=== PATIENT | male | born 1985 | race Caucasian/White ===

== ENCOUNTER 2016-10-19 00:47 | Emergency (ER) | payer OTHER ==
[~2016-10-19] VITALS: Ht 180.3 cm; Wt 80.3 kg
[~2016-10-19 00:47] MED LIST: CYCLOBENZAPRINE10 MG PO; FLONASE0.05 MG/AC NS; KEFLEX500 MG PO; KENALOG 0.1%80 GM T; LOMOTIL 0.025 M1 TA1 PO; MOTRIN800 MG PO; Motrin,Rufen800 MG PO; ROBITUSSIN CF240 ML PO; VIBRAMYCIN100 MG PO; VICODIN 5/500 505 MG PO; ZOFRAN ODT4 MG SL
[2016-10-19 00:56] VITALS: BP 123/73
[2016-10-19] MEDS ORDERED: PREDNISONE10 MG PO (01:02)
== END 2016-10-19 01:18 | disposition home or self-care (01) ==
LOC: ED 00:47
DX: L23.7 Allergic contact dermatitis due to plants, except food (principal); Z91.030 Bee allergy status

== ENCOUNTER 2018-03-22 17:59 | Emergency (ER) | payer SELFPAY ==
[~2018-03-22] VITALS: Ht 180.3 cm; Wt 74.8 kg
[~2018-03-22 17:59] MED LIST changes: +PREDNISONE10 MG PO
[2018-03-22 18:18] LABS: BASO # 0.1 10*3/uL (0.0-0.1); BASO % 0.6 % (0.0-1.0); EOS # 0.1 10*3/uL (0.0-0.4); EOS % 0.9 % (1.0-4.0); HEMATOCRIT 42.5 % (42.0-52.0); HEMOGLOBIN 14.3 g/dl (14.0-18.0); LYMPH # 2.9 10*3/uL (1.3-4.4); LYMPH % 21.5 % (27.0-41.0); MEAN CELL VOLUME 93.4 fl (80.0-94.0); MEAN CORPUSCULAR HGB 31.4 pg (27.0-31.0); MEAN CORPUSCULAR HGB CONC 33.6 g/dl (33.0-37.0); MEAN PLATELET VOLUME 9.6 fl (9.6-12.3); MONO # 0.5 10*3/uL (0.1-1.0); MONO % 3.5 % (3.0-9.0); NEUT # 9.8 10*3/uL (2.3-7.9); NEUT % 73.1 % (47.0-73.0); PLATELET COUNT AUTOMATED 198 10*3/uL (130-400); RED BLOOD COUNT 4.55 10*6/uL (4.50-5.90); RED CELL DISTRI WIDTH 12.9 % (0-14.5); WHITE BLOOD COUNT 13.5 10*3/uL (4.8-10.8)
[2018-03-22 18:28] LABS: BILIRUBIN NEGATIVE (NEGATIVE); BLOOD NEGATIVE (NEGATIVE); CLARITY SL CLOUDY (CLEAR); COLOR YELLOW (YELLOW); GLUCOSE NEGATIVE (NEGATIVE); KETONE NEGATIVE (NEGATIVE); LEUKO ESTERASE NEGATIVE (NEGATIVE); NITRITE NEGATIVE (NEGATIVE); UROBILINOGEN 0.2 E.U./dl (0.2-1.0)
[2018-03-22 18:32] LABS: ALBUMIN 3.7 gm/dl (3.1-4.5); ALKALINE PHOSPHATASE 72 U/L (45-117); BUN 14 mg/dl (7-24); CHLORIDE 106 mmol/L (98-107); CREATININE 0.95 mg/dL (0.70-1.30); POTASSIUM 4.1 mmol/L (3.5-5.1); SGOT/AST 11 IU/L (3-35); SGPT/ALT 23 U/L (12-78); SODIUM 141 mmol/L (136-145); TOTAL PROTEIN 7.4 gm/dL (6.4-8.2)
[2018-03-22 18:33] LABS: BACTERIA 1+; MUCOUS TRACE
[2018-03-22 18:34] LABS: EPITHELIAL CELLS 0-2
[2018-03-22 19:46] VITALS: BP 101/50
[2018-03-22] MEDS ORDERED: SEPTDS PO (22:43)
[2018-03-22] MEDS ORDERED: NAPROSYN500 MG PO (22:43)
== END 2018-03-22 22:48 | disposition home or self-care (01) ==
LOC: ED 17:59
PROVIDERS: Nurse Practitioner Family
DX: R30.0 Dysuria (principal); M54.5 Low back pain; Z87.440 Personal history of urinary (tract) infections; Z91.030 Bee allergy status

== ENCOUNTER 2018-04-29 18:03 | Emergency (ER) | payer OTHER ==
[~2018-04-29] VITALS: Ht 175.2 cm; Wt 79.4 kg
[~2018-04-29 18:03] MED LIST changes: +NAPROSYN500 MG PO; +SEPTDS PO
[2018-04-29 18:06] VITALS: BP 117/83
[2018-04-29] MEDS ORDERED: ZOFRAN4 MG PO (19:31)
== END 2018-04-29 20:25 | disposition home or self-care (01) ==
LOC: ED 18:03
DX: A08.4 Viral intestinal infection, unspecified (principal); Z91.030 Bee allergy status; Z79.2 Long term (current) use of antibiotics; Z79.899 Other long term (current) drug therapy

== ENCOUNTER 2018-05-15 19:08 | Emergency (ER) | payer OTHER ==
[~2018-05-15] VITALS: Ht 177.8 cm; Wt 74.8 kg
[2018-05-15 19:08] VITALS: BP 129/72
[~2018-05-15 19:08] MED LIST changes: +ZOFRAN4 MG PO
[2018-05-15] MEDS ORDERED: CYCLOBENZAPRINE5 M3 PO (21:09)
[2018-05-15] MEDS ORDERED: MEDROL DOSEPAK4 MG PO (21:09)
== END 2018-05-15 21:13 | disposition home or self-care (01) ==
LOC: ED 19:08
DX: S39.012A Strain of muscle, fascia and tendon of lower back, initial encounter (principal); Z91.030 Bee allergy status; X58.XXXA Exposure to other specified factors, initial encounter; Y93.89 Activity, other specified; Y92.89 Other specified places as the place of occurrence of the external cause; Y99.9 Unspecified external cause status

== ENCOUNTER → 2018-06-24 | Outpatient (CLI) | payer OTHER ==
[~2018-06-24] MED LIST changes: +CYCLOBENZAPRINE5 M3 PO; +MEDROL DOSEPAK4 MG PO
[2018-06-24 12:10] LABS: HEMATOCRIT 42.1 % (42.0-52.0); HEMOGLOBIN 14.9 g/dl (14.0-18.0); MEAN CELL VOLUME 91.7 fl (80.0-94.0); MEAN CORPUSCULAR HGB 32.5 pg (27.0-31.0); MEAN CORPUSCULAR HGB CONC 35.4 g/dl (33.0-37.0); MEAN PLATELET VOLUME 10.2 fl (9.6-12.3); PLATELET COUNT AUTOMATED 204 10*3/uL (130-400); RED BLOOD COUNT 4.59 10*6/uL (4.50-5.90)
[2018-06-24 13:01] LABS: ATYPICAL LYMPHS 5 % (0-0); BASOPHILS 1 % (0-1); PLATELET SUFFICIENCY NORMAL (NORMAL); TOTAL CELLS COUNTED 100 #CELLS
== END | disposition home or self-care (01) ==
LOC: LAB 11:40
PROVIDERS: Nurse Practitioner
DX: D72.828 Other elevated white blood cell count (principal)

== ENCOUNTER 2018-11-12 10:30 | Emergency (ER) | payer OTHER ==
[~2018-11-12] VITALS: Wt 74.8 kg
--- NOTE | ~2018-11-12 | EKG ---
[place], [place] ELECTROCARDIOGRAM REPORT NAME: CHARLIE CARVER UNIT #: [id number] ROOM: DOCTOR: EPIPHWYATT DRAFT REPORT BIRTHDATE: [birth year] [facility] Test Date: 2018-11-12 Test Time: 10:59:16 Pat Name: CHARLIE CARVER Department: Room: Gender: Academic Support Coordinator: Makenna Agrawal : 1985 Requested By: KENYA HARKINS Order Number: [id number] Reading MD: Marco Webber Measurements Intervals [place] Rate: 72 P: 54 WI: 166 QRS: 75 QRSD: 100 T: 32 QT: 396 QTc: 434 Interpretive Statements Sinus rhythm Probable left ventricular hypertrophy No previous ECG available for comparison Electronically Signed On 11-12-2018 9:46:48 PDT by Marco Webber CM:EKGRPT:ELECTROCARDIOGRAM REPORT [id number] KENYA COLEMAN DRAFT REPORT KENYA MOREJON
[2018-11-12 10:32] VITALS: BP 123/90
[2018-11-12 11:11] LABS: BASO # 0.1 10*3/uL (0.0-0.1); BASO % 0.6 % (0.0-1.0); EOS # 0.1 10*3/uL (0.0-0.4); EOS % 0.8 % (1.0-4.0); HEMATOCRIT 42.7 % (42.0-52.0); HEMOGLOBIN 14.7 g/dl (14.0-18.0); LYMPH # 1.9 10*3/uL (1.3-4.4); LYMPH % 15.8 % (27.0-41.0); MEAN CELL VOLUME 93.4 fl (80.0-94.0); MEAN CORPUSCULAR HGB 32.2 pg (27.0-31.0); MEAN CORPUSCULAR HGB CONC 34.4 g/dl (33.0-37.0); MONO # 0.5 10*3/uL (0.1-1.0); MONO % 4.3 % (3.0-9.0); NEUT # 9.5 10*3/uL (2.3-7.9); NEUT % 77.9 % (47.0-73.0); PLATELET COUNT AUTOMATED 227 10*3/uL (130-400); RED BLOOD COUNT 4.57 10*6/uL (4.50-5.90); RED CELL DISTRI WIDTH 13.1 % (0-14.5); WHITE BLOOD COUNT 12.2 10*3/uL (4.8-10.8)
[2018-11-12 11:19] LABS: ACT PARTIAL THROMBO TIME 27.3 SECONDS (20.0-32.1); INTERNATIONAL NORM RATIO 0.9 (2.0-3.5)
[2018-11-12 11:24] LABS: ALBUMIN 3.8 gm/dl (3.1-4.5); ALKALINE PHOSPHATASE 78 U/L (45-117); BUN 15 mg/dl (7-24); CHLORIDE 108 mmol/L (98-107); CREATININE 0.79 mg/dL (0.70-1.30); LIPASE 53 U/L (73-393); SGOT/AST 7 IU/L (3-35); SGPT/ALT 16 U/L (12-78); SODIUM 139 mmol/L (136-145); TOTAL PROTEIN 7.4 gm/dL (6.4-8.2)
[2018-11-12 11:32] LABS: BILIRUBIN NEGATIVE (NEGATIVE); BLOOD NEGATIVE (NEGATIVE); CLARITY CLEAR (CLEAR); COLOR YELLOW (YELLOW); GLUCOSE NEGATIVE (NEGATIVE); KETONE NEGATIVE (NEGATIVE); LEUKO ESTERASE 1+ (NEGATIVE); NITRITE NEGATIVE (NEGATIVE); UROBILINOGEN 0.2 E.U./dl (0.2-1.0)
[2018-11-12 11:33] LABS: TROPONIN I < 0.015 ng/ml (<0.045)
[2018-11-12 11:42] LABS: BACTERIA TRACE; EPITHELIAL CELLS 0-2; WBC 0-2 wbc/hpf (0-5)
== END 2018-11-12 11:51 | disposition home or self-care (01) ==
LOC: ED 10:30
PROVIDERS: Physician Assistant
DX: R10.9 Unspecified abdominal pain (principal); R35.0 Frequency of micturition; R20.2 Paresthesia of skin; R19.7 Diarrhea, unspecified; R42 Dizziness and giddiness; Z91.013 Allergy to seafood

== ENCOUNTER 2019-01-04 22:20 | Emergency (ER) | payer OTHER ==
[~2019-01-04] VITALS: Ht 177.8 cm; Wt 74.8 kg
[2019-01-04 22:21] VITALS: BP 140/86
[2019-01-04] MEDS ORDERED: AUGMENTIN 875-875 MG PO (23:15)
== END 2019-01-04 23:08 | disposition home or self-care (01) ==
LOC: ED 22:20
DX: J02.9 Acute pharyngitis, unspecified (principal); Z91.030 Bee allergy status; Z79.2 Long term (current) use of antibiotics; Z79.899 Other long term (current) drug therapy

== ENCOUNTER 2019-03-13 03:28 | Emergency (ER) | payer OTHER ==
[~2019-03-13] VITALS: Ht 177.8 cm; Wt 77.1 kg
[~2019-03-13 03:28] MED LIST changes: +AUGMENTIN 875-875 MG PO
[2019-03-13 03:29] VITALS: BP 126/85
[2019-03-13 04:21] LABS: BASO # 0.1 10*3/uL (0.0-0.1); BASO % 0.9 % (0.0-1.0); EOS # 0.1 10*3/uL (0.0-0.4); EOS % 1.1 % (1.0-4.0); HEMATOCRIT 43.6 % (42.0-52.0); HEMOGLOBIN 14.9 g/dl (14.0-18.0); LYMPH # 2.9 10*3/uL (1.3-4.4); LYMPH % 30.8 % (27.0-41.0); MEAN CELL VOLUME 93.6 fl (80.0-94.0); MEAN CORPUSCULAR HGB CONC 34.2 g/dl (33.0-37.0); MEAN PLATELET VOLUME 10.4 fl (9.6-12.3); MONO # 0.5 10*3/uL (0.1-1.0); MONO % 5.2 % (3.0-9.0); NEUT # 5.8 10*3/uL (2.3-7.9); NEUT % 61.8 % (47.0-73.0); PLATELET COUNT AUTOMATED 226 10*3/uL (130-400); RED BLOOD COUNT 4.66 10*6/uL (4.50-5.90); WHITE BLOOD COUNT 9.3 10*3/uL (4.8-10.8)
[2019-03-13 04:37] LABS: ALBUMIN 3.9 gm/dl (3.1-4.5); ALKALINE PHOSPHATASE 73 U/L (45-117); BUN 15 mg/dl (7-24); CHLORIDE 108 mmol/L (98-107); CREATININE 0.91 mg/dL (0.70-1.30); LIPASE 57 U/L (73-393); POTASSIUM 3.8 mmol/L (3.5-5.1); SGOT/AST 23 IU/L (3-35); SGPT/ALT 24 U/L (12-78); SODIUM 140 mmol/L (136-145); TOTAL PROTEIN 7.5 gm/dL (6.4-8.2)
[2019-03-13 04:49] LABS: BILIRUBIN NEGATIVE (NEGATIVE); BLOOD NEGATIVE (NEGATIVE); CLARITY CLEAR (CLEAR); COLOR YELLOW (YELLOW); GLUCOSE NEGATIVE (NEGATIVE); KETONE NEGATIVE (NEGATIVE); LEUKO ESTERASE NEGATIVE (NEGATIVE); NITRITE NEGATIVE (NEGATIVE); SPECIFIC GRAVITY 1.015 (1.005-1.030); UROBILINOGEN 0.2 E.U./dl (0.2-1.0)
[2019-03-13 04:58] LABS: BACTERIA TRACE
[2019-03-13 04:59] LABS: MUCOUS 1+
[2019-03-13] MEDS ORDERED: FLAGYL500 MG PO (06:57)
== END 2019-03-13 06:48 | disposition home or self-care (01) ==
LOC: ED 03:28
PROVIDERS: Emergency Medicine
DX: K52.9 Noninfective gastroenteritis and colitis, unspecified (principal); Z91.030 Bee allergy status; Z79.2 Long term (current) use of antibiotics; Z79.899 Other long term (current) drug therapy

== ENCOUNTER → 2020-03-11 | Outpatient (CLI) | payer OTHER ==
[~2020-03-11] MED LIST changes: +FLAGYL500 MG PO
== END | disposition home or self-care (01) ==
LOC: COVID19 11:54
PROVIDERS: ATTEND Internal Medicine
DX: Z20.828 Contact with and (suspected) exposure to other viral communicable diseases (principal)

== ENCOUNTER 2020-09-13 17:49 | Emergency (ER) | payer OTHER ==
[2020-09-13 17:52] VITALS: BP 132/57
[2020-09-13] MEDS ORDERED: IBUPROFEN600 MG PO (21:42)
[2020-09-13] MEDS ORDERED: CEPHALEXIN500 M1 PO (21:42)
== END 2020-09-13 21:55 | disposition home or self-care (01) ==
LOC: ED 17:49
DX: S61.210A Laceration without foreign body of right index finger without damage to nail, initial encounter (principal); Z91.030 Bee allergy status; Z79.899 Other long term (current) drug therapy; Z79.2 Long term (current) use of antibiotics; W26.0XXA Contact with knife, initial encounter; Y93.89 Activity, other specified; Y92.89 Other specified places as the place of occurrence of the external cause; Y99.8 Other external cause status

== ENCOUNTER → 2020-09-21 | Outpatient (CLI) | payer OTHER ==
[~2020-09-21] MED LIST changes: +CEPHALEXIN500 M1 PO; +IBUPROFEN600 MG PO
== END | disposition home or self-care (01) ==
LOC: LAB 18:29
PROVIDERS: ATTEND Internal Medicine
DX: R19.7 Diarrhea, unspecified (principal)

== ENCOUNTER 2022-01-05 19:46 | Emergency (ER) | payer OTHER ==
[~2022-01-05] VITALS: Wt 84.8 kg
[2022-01-05 20:25] LABS: BASO # 0.1 10*3/uL (0.0-0.1); BASO % 0.6 % (0.0-1.0); HEMATOCRIT 45.2 % (42.0-52.0); LYMPH # 1.4 10*3/uL (1.3-4.4); LYMPH % 17.4 % (27.0-41.0); MEAN CELL VOLUME 89.7 fl (80.0-94.0); MEAN CORPUSCULAR HGB 31.3 pg (27.0-31.0); MEAN PLATELET VOLUME 10.1 fl (9.6-12.3); MONO # 0.9 10*3/uL (0.1-1.0); MONO % 11.4 % (3.0-9.0); NEUT # 5.6 10*3/uL (2.3-7.9); NEUT % 70.2 % (47.0-73.0); PLATELET COUNT AUTOMATED 220 10*3/uL (130-400); RED BLOOD COUNT 5.04 10*6/uL (4.50-5.90); RED CELL DISTRI WIDTH 13.2 % (0-14.5); WHITE BLOOD COUNT 7.9 10*3/uL (4.8-10.8)
[2022-01-05 20:42] LABS: ALKALINE PHOSPHATASE 89 U/L (45-117); BUN 25 mg/dl (7-24); CHLORIDE 103 mmol/L (98-107); CREATININE 1.26 mg/dL (0.70-1.30); POTASSIUM 3.6 mmol/L (3.5-5.1); SGOT/AST 32 IU/L (3-35); SGPT/ALT 38 U/L (12-78); SODIUM 133 mmol/L (136-145)
[2022-01-05] MEDS ORDERED: AMOXICILLIN500 M2 PO (20:44)
[2022-01-05 21:49] VITALS: BP 132/95
[2022-01-05] MEDS ORDERED: PHENERGAN25 M3 PO (22:19)
== END 2022-01-05 22:39 | disposition home or self-care (01) ==
LOC: ED 19:46
PROVIDERS: Internal Medicine
DX: U07.1 COVID-19 (principal); Z91.030 Bee allergy status

== ENCOUNTER 2022-03-23 08:25 | Emergency (ER) | payer OTHER ==
[~2022-03-23] VITALS: Ht 177.8 cm; Wt 86.2 kg
[~2022-03-23 08:25] MED LIST changes: +AMOXICILLIN500 M2 PO; +PHENERGAN25 M3 PO
[2022-03-23 08:33] VITALS: BP 127/86
[2022-03-23 09:05] LABS: BASO % 0.2 % (0.0-1.0); HEMATOCRIT 43.4 % (42.0-52.0); LYMPH # 1.3 10*3/uL (1.3-4.4); LYMPH % 12.7 % (27.0-41.0); MEAN CELL VOLUME 89.7 fl (80.0-94.0); MEAN CORPUSCULAR HGB CONC 35.7 g/dl (33.0-37.0); MEAN PLATELET VOLUME 9.9 fl (9.6-12.3); MONO # 0.8 10*3/uL (0.1-1.0); MONO % 7.7 % (3.0-9.0); NEUT # 7.8 10*3/uL (2.3-7.9); NEUT % 79.1 % (47.0-73.0); PLATELET COUNT AUTOMATED 213 10*3/uL (130-400); RED BLOOD COUNT 4.84 10*6/uL (4.50-5.90); RED CELL DISTRI WIDTH 12.2 % (0-14.5); WHITE BLOOD COUNT 9.9 10*3/uL (4.8-10.8)
[2022-03-23 09:19] LABS: ACT PARTIAL THROMBO TIME 28.5 SECONDS (20.0-32.1)
[2022-03-23 10:08] LABS: ALKALINE PHOSPHATASE 65 U/L (46-116); BUN 20 mg/dl (9-23); CHLORIDE 98 mmol/L (98-107); CREATININE 0.91 mg/dL (0.70-1.30); LIPASE 25 U/L (12-53); POTASSIUM 3.5 mmol/L (3.4-5.1); SGPT/ALT 24 U/L (10-49); SODIUM 133 mmol/L (136-145)
[2022-03-23 10:09] LABS: TOTAL PROTEIN 8.2 gm/dL (6.0-8.0)
[2022-03-23 10:14] LABS: ETHYL ALCOHOL < 3.0 mg/dl (<3)
[2022-03-23 10:45] LABS: BILIRUBIN Negative (Negative); BLOOD Negative (Negative); CLARITY Cloudy (Clear); COLOR Dark Yellow (Yellow); GLUCOSE Negative (Negative); KETONE 1+ (Negative); LEUKO ESTERASE Negative (Negative); NITRITE Negative (Negative); PH 5.5 (4.5-8.0); SPECIFIC GRAVITY >= 1.030 (1.001-1.030)
[2022-03-23 11:17] LABS: URINE AMPHETAMINES Negative (1000ng/ml); URINE BARBITURATES Negative (200ng/ml); URINE BENZODIAZEPINES Negative (200ng/ml); URINE CANNABINOIDS (THC) Positive (50ng/ml); URINE COCAINE Negative (300ng/ml); URINE METHADONE Negative (300ng/ml); URINE OPIATES Negative (300ng/ml); URINE PHENCYCLIDINE Negative (25ng/ml)
[2022-03-23 11:18] LABS: BACTERIA 2+; MUCOUS 2+
[2022-03-23 11:19] LABS: EPITHELIAL CELLS 0-2
[2022-03-23] MEDS ORDERED: ONDANSETRON HYDR4 M1 PO (12:14)
[2022-03-23] MEDS ORDERED: TAMIFLU 75MG CA75 MG PO (12:14)
[2022-03-23] MEDS ORDERED: PRILOSEC20 M1 PO (12:16)
== END 2022-03-23 12:36 | disposition home or self-care (01) ==
LOC: ED 08:25
PROVIDERS: Emergency Medicine
DX: K92.0 Hematemesis (principal); Z20.822 Contact with and (suspected) exposure to COVID-19; Z91.030 Bee allergy status

== ENCOUNTER 2022-03-24 00:11 | Inpatient (IN) | payer OTHER ==
[~2022-03-24] VITALS: Ht 177.8 cm; Wt 87.2 kg
[~2022-03-24 00:11] MED LIST changes: +ONDANSETRON HYDR4 M1 PO; +PRILOSEC20 M1 PO; +TAMIFLU 75MG CA75 MG PO
[2022-03-24 00:22] VITALS: BP 135/89
[2022-03-24 01:47] LABS: BASO % 0.2 % (0.0-1.0); EOS % 0.1 % (1.0-4.0); HEMATOCRIT 40.3 % (42.0-52.0); LYMPH # 1.5 10*3/uL (1.3-4.4); MEAN CELL VOLUME 91.4 fl (80.0-94.0); MEAN CORPUSCULAR HGB 31.7 pg (27.0-31.0); MEAN CORPUSCULAR HGB CONC 34.7 g/dl (33.0-37.0); MEAN PLATELET VOLUME 9.9 fl (9.6-12.3); MONO # 0.6 10*3/uL (0.1-1.0); MONO % 6.7 % (3.0-9.0); NEUT # 7.3 10*3/uL (2.3-7.9); NEUT % 76.8 % (47.0-73.0); PLATELET COUNT AUTOMATED 211 10*3/uL (130-400); RED BLOOD COUNT 4.41 10*6/uL (4.50-5.90); RED CELL DISTRI WIDTH 12.3 % (0-14.5); WHITE BLOOD COUNT 9.5 10*3/uL (4.8-10.8)
[2022-03-24 01:58] LABS: BILIRUBIN Negative (Negative); BLOOD Negative (Negative); CLARITY Clear (Clear); COLOR Dark Yellow (Yellow); GLUCOSE Negative (Negative); KETONE 3+ (Negative); LEUKO ESTERASE Negative (Negative); NITRITE Negative (Negative); PH 5.5 (4.5-8.0); SPECIFIC GRAVITY >= 1.030 (1.001-1.030)
[2022-03-24 02:03] LABS: ALKALINE PHOSPHATASE 57 U/L (46-116); BUN 18 mg/dl (9-23); CHLORIDE 100 mmol/L (98-107); CREATININE 0.85 mg/dL (0.70-1.30); LIPASE 24 U/L (12-53); POTASSIUM 3.5 mmol/L (3.4-5.1); SGPT/ALT 18 U/L (10-49); SODIUM 134 mmol/L (136-145)
[2022-03-24 02:04] LABS: TOTAL PROTEIN 7.4 gm/dL (6.0-8.0)
[2022-03-24 02:04] LABS: URINE AMPHETAMINES Negative (1000ng/ml); URINE BARBITURATES Negative (200ng/ml); URINE BENZODIAZEPINES Negative (200ng/ml); URINE CANNABINOIDS (THC) Positive (50ng/ml); URINE COCAINE Negative (300ng/ml); URINE METHADONE Negative (300ng/ml); URINE OPIATES Negative (300ng/ml); URINE PHENCYCLIDINE Negative (25ng/ml)
[2022-03-24 02:12] LABS: RBC 0-2 rbc/hpf (0-2)
[2022-03-24 02:13] LABS: MUCOUS 1+
[2022-03-24 06:29] VITALS: BP 114/73
== END 2022-03-24 10:55 | disposition left against medical advice (07) | DRG 392 ==
LOC: ED 00:11 → EDHOLD 07:39
PROVIDERS: Emergency Medicine; ADMIT Emergency Medicine; ATTEND Emergency Medicine
DX: K52.9 Noninfective gastroenteritis and colitis, unspecified (principal); K92.0 Hematemesis; Z53.29 Procedure and treatment not carried out because of patient's decision for other reasons; E87.1 Hypo-osmolality and hyponatremia; K21.9 Gastro-esophageal reflux disease without esophagitis; Z87.891 Personal history of nicotine dependence; Z82.49 Family history of ischemic heart disease and other diseases of the circulatory system